=== PATIENT | male | born 1930 | race Caucasian/White ===

== ENCOUNTER 2016-09-13 01:07 | Observation (INO) | payer MEDICARE, OTHER ==
[2016-09-13] MEDS ORDERED: ALBUTEROL SULFATE/IPRATROPIUM 3 ML NEBU IH ONE ×2 (01:27→01:37)
--- NOTE | 2016-09-13 01:30 | ERNOTE ---
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 - Immun/Allergies/Home Medications Immunizations: IMMUNIZATION HX Immunizations Up to Date Yes History of Influenza Vaccine No Hx Pneumococcal Vaccination No Allergies/Adverse Reactions: Allergies latex Allergy (Mild, Verified 09/13/16 01:39) SWELLING carbamazepine [From Tegretol] Adverse Reaction (Mild, Verified 09/13/16 01:39) RASH carbidopa [From Sinemet] Adverse Reaction (Mild, Verified 09/13/16 01:39) RASH levodopa [From Sinemet] Adverse Reaction (Mild, Verified 09/13/16 01:39) RASH Home Medications: HOME MEDICATIONS Dabigatran Etexilate Mesylate [Pradaxa] 75 mg PO DAILY 09/13/16 [Last Taken Unknown] Diphenhydramine HCl [Benadryl Allergy] 25 mg PO QID 09/13/16 [Last Taken Unknown ] Fenofibrate [Lofibra] 54 mg PO DAILY 09/13/16 [Last Taken Unknown] Furosemide 20 mg PO DAILY 09/13/16 [Last Taken Unknown] Insul NPH Hu Rec/Ins Rg Hu Rec [Novolin 70/30 100U/ml] 15 units SQ BID 09/13/16 [Last Taken Unknown] Insulin Aspart [Novolog] 15 units SC DAILY 09/13/16 [Last Taken Unknown] L.acidoph,Paracasei, B.lactis [Probiotic] 1 tab PO BID 09/13/16 [Last Taken Unknown] Levothyroxine Sodium [Levoxyl] 25 mcg PO DAILY 09/13/16 [Last Taken Unknown] Montelukast Sodium [Singulair] 10 mg PO DAILY 09/13/16 [Last Taken Unknown] Simvastatin 20 mg PO HS 09/13/16 [Last Taken Unknown] Tamsulosin HCl 0.4 mg PO DAILY 09/13/16 [Last Taken Unknown] Temazepam 30 mg PO HS 09/13/16 [Last Taken Unknown] - History of Present Illness Narrative: SAYS HE HAS HAD SEVERE COUGHING AND SOB FOR THE PAST 2 NIGHTS AND TONIGHT HE DID NOT IMPROVE WITH HIS BREATHING TREATMENTS SO SHE CALLED EMS WHO STARTED HIM ON BIPAP. HE HAS HX OF TUSHAR BUT HAS NOT USED C-PAP FOR A "WHILE", CAN'T QUITE EXPLAIN ( it sounds like it may have been lost in transferring from one clinic to another as it was started by someone in [place]). HE HAS HX OF CHF AND PHX OF [place] 30 YRS AGO. HE HAS PARKINSONS AND IS BED RIDDEN AT HOME AND IS VERY OBESE AND NON-AMBULATORY. WHEN I ASKED IF THEY HAVE HOME HELP SHE DID NOT REPLY. ACCORDING TO HER HE HAS BEEN A FULL CODE BUT SHE WANTS HIM TO BE A DNR( she later tells me she will talk this over with her pcp) . PT, WHO DOESN'T SAY MUCH, THOUGH SEEMS ALERT, DENIES CURRENT PAIN OR RESPIRATORY DISTRESS. SAYS HE WAS LAST SEEN BY PCP 4-5 MONTHS AGO. - Patient's Past Medical History Patient History - Medical: Diabetes Type 2 Insulin Dependent, Hypothyroidism, Renal Disease, UTI'S, Other Patient History - Cardiac/Respiratory: Asthma, Coronary Heart Disease, Deep Vein Thrombosis, Myocardial Infarction, Pneumonia, Sleep Apnea Patient History - Cancer: Myeloma Patient History - Surgical Procedures: Back Surgery, Cataracts, Cardiac stent, Total Knee Replacement, Other - circumcision Patient History - Other: None - Family History Father Family History - Medical: Family History - Cardiac/Respiratory: Myocardial Infarction Mother Family History - Cardiac/Respiratory: No pertinent hx Brother Family History - Medical: Other Family History - Cardiac/Respiratory: No pertinent hx - Social History Living Situations: other - patient is bedbound, chrystal lift only, taken care of by with bath aid, refuses to put patient in retirement Abuse History: No History of abuse Psych History: Hx of Anxiety Does anyone smoke in the home?: No Alcohol Use: none Drug Use: none - Immunizations Immunizations Up to Date: Yes Hx Pneumococcal Vaccination: No History of Influenza Vaccine: No Physical Exam - Physical Exam General Appearance: Present: sleeping/easy to arouse - PT IS AN OBESE ELDERLY , INVALIDED, NON-AMBULATORY ELIECER BIPAP , 10/5 AND FIO2 OF 50%, WITH GOOD VS AND NO EVIDENCE OF ANY DISTRESS, REPIRATORY OR OTHERWISE. HE IS ALERT AND COOPERATIVE BUT SAYS IT IS HARD FOR HIM TO SPEAK CLEARLY BECAUSE OF HIS CHRONIC ILLNESS AND DEFERS TO HIS . HE IS CHRONICALLY WEAKEND FROM HIS PARKINSONS AND UNABLE TO HELP HIMSELF TO SITTING. Ears, Nose, Throat: Present: normal ENT inspection, other - WEARING CPAP MASK AND TOLERATING IT WELL. Respiratory: Present: no respiratory distress, normal breath sounds, no accessory muscle use, chest nontender, lungs clear - ANTERIORLY AND LATERALLY. Cardiovascular/Chest: Present: no murmur, normal peripheral pulses, irregularly irregular Peripheral Pulses: N=norm/S=strong/W=weak/B=bound/A=absent: Dorsalis-pedis (R): Normal, Dorsalis-pedis (L): Normal Gastrointestinal/Abdominal: Present: normal bowel sounds, nontender - VERY OBESE AND SOFT. Extremity Exam: Present: other - PT WITH BILATERAL FOOT AND ANKLE PADDINGS AND MILD CHRONIC NON PITTING EDEMA. Neurological Exam: Present: alert, oriented, normal mood/affect Skin Exam: Present: normal color, warm/dry ED Progress - Results and Orders Patient's Lab Results:: I have reviewed the patient's lab results. Results and Orders: cbc = wnl. cmp = bun/creat = 48/2.28 ( IN KEEPING WITH OLDER VALUES FROM 01/2016 ), bnp = 1706, and tsh = 4.574. d-dimer & troponin & lactate are all normal. ABG ON 50% FIO2 WITH BIPAP OF 10/50 SHOW SL ELEVATED CO2 AND O2 OF 110 WITH NORMAL PH. ( I ORDERED CPAP AT 4 AND HE WAS DECREASED TO FIO2 = 40 % ) - Vital Signs Patient's Vital Signs:: I have reviewed the patient's vital signs. - EKG EKG: atrial fibrillation EKG read: Interp. by me - no sig. change since 09/2015 except heart now is at 100 and he was 126/min then. - X-Ray X-Ray #1 X-Ray: chest - portable chest = unremarkable. Interpretation: Interp. by me - NO ACUTE CHANGE. - Progress/Reassessment Progress:: Unchanged - pt has had no distress since being here and on bi pap. finally related to me that she ca not take care of him 24 hours a day any more and thinks he needs to be admitted. She states she has had no home health nurse or visiting nurse and has had to do all his care by herself. She seems somewhat fatigued and besides her self with how she can manage anymore. Plan - Plan Plan: IS VERY TIRED TONIGHT AND HAPPY HE WILL BE ADMITTED. I D/W HOSPITALIST ( [facility]) WHO AGREED TO HAVE HIM ADMITTED OBS PT. AND WILL ARRANGE SOCIAL SERVICE CONSULT. Departure Clinical Impression: Dyspnea, unspecified Qualifiers: Dyspnea type: unspecified Qualified Code(s): R06.00 - Dyspnea, unspecified - Departure Disposition: [facility] Condition: Fair
--- OUTSIDE RECORDS SUMMARY | 2016-09-13 01:37 | XMS REPORT | Continuity of Care Document ---
:1930 Author Organization [facility] ([facility]) Address [address] [place] [address] Phone [phone] Care Team Providers Name Role Phone Axel Freire Primary Care Provider [phone] Source Comments This disclosure is being made pursuant to the Care Everywhere program, applicable federal and state laws, and may not contain all informaitonavailable regarding this patient.[facility] ([facility]) Active Allergies and Adverse Reactions Allergen Noted Date Severity Reactions Comments Carbamazepine 05/30/2015 High Rash DRESS Current Medications Prescription Sig. Disp. Refills Start End Date Status Date SUPPLY FREESTYLE by In Vitro route 4 times 1 Each 0 Active LITE meter daily. Patient checks 3 blood sugars QID. Dx: Indications: TYPE 2 DIABETES MELLITUS SUPPLY lancets take as directed daily. 300 Each 3 Active Patient checks blood 3 sugars QID. Dx: Indications: TYPE 2 DIABETES MELLITUS simvastatin 20 mg Take 1 Tab by mouth every 30 Tab 1 Active tablet evening. Indications: 3 HYPERCHOLESTEROLEMIA lisinopril 2.5 mg Take 1 Tab by mouth 30 Tab 1 Active tablet daily. Indications: 3 HYPERTENSION SUPPLY FREESTYLE 4 times daily. Patient 300 Strip 3 Active LITE test strips checks blood sugars 3 QID.Dx: Indications: TYPE 2 DIABETES MELLITUS tamsulosin 0.4 mg Take 0.4 mg by mouth Active ER capsule daily. dorzolamide 2 % instill 1 Drop onto both 10 mL 11 Active ophthalmic eyes 3 times daily. 4 solution Indications: OPEN ANGLE GLAUCOMA acetaminophen 325 Take 650 mg by mouth Active mg tablet every 6 hours as needed for Pain bimatoprost Instill 1 Drop onto the Active (LUMIGAN) 0.01 % left eye every evening ophthalmic solution furosemide 20 mg Take 20 mg by mouth daily Active tablet dabigatran Take 75 mg by mouth daily Active (praDAXA) 75 mg capsule fenofibrate 54 mg Take 54 mg by mouth daily Active tablet lactobacillus Take 1 capsule by mouth 4 Active rhamnosus (gg) times daily (CULTURELLE) capsule montelukast 10 mg Take 10 mg by mouth every Active tablet evening temazepam 30 mg Take 30 mg by mouth at Active capsule bedtime carbidopa-levodopa Take 1 tablet by mouth 3 90 tablet Active 25-100 mg per times daily 6 tablet insulin Inject 20 Units 10 mL Active nph-regular subcutaneously every 6 (HumuLIN 70/30) evening with dinner 100 unit/mL injection vial insulin Inject 30 Units 10 mL Active nph-regular subcutaneously every 6 (HumuLIN 70/30) morning before breakfast 100 unit/mL injection vial predniSONE 50 mg Take 1 tablet (50 mg 30 tablet 0 Active tablet total) by mouth daily 6 triamcinolone 0.1 Apply topically 2 times 15 g Active % ointment daily Apply a thin layer 6 to affected area. lidocaine urojet Insert 10 mL urethrally 6 mL Active 2% once as needed 6 insulin regular Inject 2-10 Units 10 mL Active (HumuLIN R) 100 subcutaneously 3 times 6 unit/mL injection daily before meals. vial lidocaine urojet Insert 10 mL urethrally 11 mL Active 2% once as needed. 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 TUSHAR on CPAP 03/02/2013 Dyspnea on exertion 03/02/2013 Diabetes mellitus type 2, controlled 01/11/2008 Hypertension 01/11/2008 Hyperlipidemia 01/11/2008 Immunizations Name Dates Previously Given Next Due Influenza, unspecified 02/26/2015 Pneumococcal Polysaccharide, PPSV23 (Pneumovax 23) 05/30/2015 Pneumococcal, unspecified 05/29/2012 Social History Tobacco Use Types Packs/Day Years Used Date Former Smoker 1 35 Smokeless Tobacco: Never Used Comments:quit smoking after [place] in 1982 Alcohol Use Drinks/Week oz/Week Comments No Last Filed Vital Signs Vital Sign Reading Time Taken Blood Pressure 136/65 05/30/2015 3:00 PM 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 Pulse 61 05/30/2015 3:00 PM 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 Temperature 36.7 C (98.1 F) 05/30/2015 3:00 PM 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 Respiratory Rate 16 05/30/2015 3:00 PM 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 Height 1.702 m (5' 7") 05/27/2015 8:00 PM 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 Weight 98.521 kg (217 lb 3.2 oz) 05/27/2015 8:00 PM 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 Body Mass Index 34.01 05/27/2015 8:00 PM 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 Oxygen Saturation 96% 05/30/2015 3:00 PM 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 Plan of Care Health Maintenance Due Date Last Done Comments Hepatitis B Vaccine (1 of 3 - Primary 1930 Series) Tdap Vaccine 1943 DIABETIC: Cholesterol 1950 Diabetic: Hdl 1950 Diabetic: Ldl 1950 DIABETIC: Microalbumin 1950 DIABETIC: Triglycerides 1950 Td Vaccine 1950 Colonoscopy 1982 Zoster Vaccine 1992 DIABETIC: Foot Exam 03/02/2013 DIABETIC: Retinal Eye Exam 06/02/2014 06/02/2013, 06/02/2013 DIABETIC: Hemoglobin A1C 11/25/2015 05/27/2015 Influenza Vaccine: Seasonal (#1) 12/17/2015 02/26/2015 Pneumococcal Vaccine (2 of 2 - PCV13) 05/30/2016 05/30/2015 Results from Last 3 Months Not on file
--- OUTSIDE RECORDS SUMMARY | 2016-09-13 01:37 | XMS REPORT | Continuity of Care Document ---
:1930 Author Organization [facility] [place] [address] Care Team Providers Name Role Phone Cyndee Hernandez Primary Care Provider [phone] Source Comments This disclosure is being made pursuant to the [employer] program and maynot contain all information available regarding this patient.[facility] Active Allergies and Adverse Reactions No Known Allergies Current Medications Be aware that medications may not be up to date as of this document. Alwaysverify current medications with the patient. Prescription Sig. Disp. Refills Start Date End Date Status insulin NPH-insulin Inject 50 Units Active regular (HUMULIN into the skin 2 70/30) (70-30) 100 (two) times daily UNIT/ML injection before meals. insulin lispro Inject 5 Units Active (HUMALOG) 100 UNIT/ML into the skin 3 injection (three) times daily before meals. furosemide (LASIX) 40 Take 40 mg by Active MG tablet mouth daily. 2 tabs daily metoprolol tartrate Take 25 mg by Active (LOPRESSOR) 25 MG mouth 2 (two) tablet times daily. simvastatin (ZOCOR) 10 Take 10 mg by Active MG tablet mouth nightly. cephALEXin (KEFLEX) Take 1 capsule by 20 capsule 0 03/12/2012 Active 500 MG capsule mouth 4 (four) times daily. Active Problems Not on file Immunizations Name Dates Previously Given Next Due Influenza Split 05/21/2009,05/14/2009,03/16/2008,02/17 Influenza, Inactivated, Trivalent, 3 02/02/2012 years and older, single dose syringe Pneumococcal Polysaccharide-23 06/07/2007 Td, absorbed 03/12/2012 Social History Tobacco Use Types Packs/Day Years Used Date Former Smoker Alcohol Use Drinks/Week oz/Week Comments No Last Filed Vital Signs Vital Sign Reading Time Taken Blood Pressure 122/68 11/09/2012 1:53 PM CDT Pulse 70 11/09/2012 1:53 PM CDT Temperature 36.8 C (98.2 F) 11/09/2012 1:53 PM CDT Respiratory Rate 18 11/09/2012 1:53 PM CDT Height 1.753 m (5' 9") 07/19/2012 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
[2016-09-13 01:53] LABS: Hematocrit 50.6 % (42.0-52.0); Hemoglobin 16.3 gm/dL (13.5-18.0); Mean Cell Volume 102.2 fl (78-100); Mean Corpuscular Hemoglobin 32.9 pg (27-31); Mean Corpuscular Hgb Conc 32.2 g/dl (32-36); Mean Platelet Volume 10.4 fl (6.0-9.5); Neutrophil # 5.8 K/mm3 (1.3-6.0); Neutrophil % 66.8 % (42-75.0); Platelet Count 264 K/mm3 (150-450); Red Blood Count 4.95 M/mm3 (4.7-6.0); Red Cell Distribution Width 13.3 % (11.5-14.0); White Blood Count 8.7 K/mm3 (4.0-10.5)
[2016-09-13 02:16] LABS: ALT 13 U/L (19-67); AST 12 U/L (0-48); Albumin * 3.3 gm/dl (3.4-5.0); Alkaline Phosphatase * 58 U/L (50-170); Anion Gap 5.4 mmol/L (6.8-13.8); BNP * 1706 pg/mL (5-650); BUN/Creatinine Ratio 21.1 (9.0-21.6); Bilirubin, Total 0.5 mg/dL (0.0-1.1); Blood Urea Nitrogen 48 mg/dL (6-23); Ca. Corrected For Albumin 9.3 mg/dL (8.4-10.2); Calcium * 9.1 mg/dL (7.9-10.9); Carbon Dioxide 35.7 mmol/L (24-32.6); Chloride 103 mmol/L (97-106); Glucose * 143 mg/dL (70-110); Potassium 4.1 mmol/L (3.4-4.6); Sodium 140 mmol/L (132-142); TSH * 4.574 uIU/mL (0.358-3.74); Total Protein 7.2 gm/dL (6.2-8.2)
[2016-09-13 02:17] LABS: Troponin I Less than 0.017 ng/ml (0.00-0.10)
--- OUTSIDE RECORDS SUMMARY | 2016-09-13 02:56 | XMS REPORT | Continuity of Care Document ---
:1930 Author Organization [facility] ([facility]) Address [address] [place] [address] Phone [phone] Care Team Providers Name Role Phone Axel Freire Primary Care Provider [phone] Source Comments This disclosure is being made pursuant to the Care Everywhere program, applicable federal and state laws, and may not contain all informaitonavailable regarding this patient.[facility] ([facility]) Active Allergies and Adverse Reactions Allergen [...] -3 (w/ p.h.) 08/15/2013 20/40 cc Avastin [id number] 20/20 -1 cc icd10 POAG (primary open-angle [...] Smokeless Tobacco: Never Used Comments:quit smoking after [place] in 1982 Alcohol Use Drinks/Week oz/Week Comments No Last Filed Vital Signs Vital Sign Reading Time Taken Blood Pressure 136/65 05/30/2015 3:00 PM 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
--- OUTSIDE RECORDS SUMMARY | 2016-09-13 02:56 | XMS REPORT | Continuity of Care Document ---
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
--- NOTE | 2016-09-13 05:27 | HP ---
Chief Complaint - Chief Complaint Date of Service: 09/13/16 Time of Service: 05:28 Chief Complaint: dyspnea History of Present Illness: 86 years old male adm to the hospital with reports of shortness of breath and a non productive cough. pt stated overnight he had episode of cough with shortness of breath. He was given his nebulizer treatment without relief so his called EMS. Enroute he was placed on bipap and given additional treatment. In ER he was given additional dose duoneb and s/s resolved. Per ER requesting placement for pt because she is no longer able to care for him at home. pt denies chest pain, wheezing, fever, chills or palpitation. pt is a poor historian due to medical condition, additional information obtained from ER and previous records. PMH significant for CHF, COPD, Parkinson, diabetes, hypertension, hypothyroidism and a-fib ( on Pradaxa), [place], recurrent UTI, CKD, c- dif colitis,sleep apnea, pneumonia and DVT. In ER labs unremarkable, BUn/ Cre at baseline and will continue to monitor. CXR unchange from last visit to [facility] ER. - Patient's Past Medical History Patient History - Medical: Diabetes Type 2 Insulin Dependent, Hypothyroidism, Renal Disease, UTI'S - Recurrent , Other - BPH, Parkinson, c-diff colitis, bed bound, obesity Patient History - Cardiac/Respiratory: Asthma, Coronary Heart Disease, CHF, Deep Vein Thrombosis, Myocardial Infarction, Pneumonia, Sleep Apnea Patient History - Cancer: Myeloma Patient History - Surgical Procedures: Back Surgery, Cataracts, Cardiac stent, Total Knee Replacement, Other Patient History - Other: None - Family History Father Family History - Medical: Family History - Cardiac/Respiratory: Myocardial Infarction Mother Family History - Cardiac/Respiratory: No pertinent hx Brother Family History - Medical: Other Family History - Cardiac/Respiratory: No pertinent hx - Social History Living Situations: spouse Abuse History: No History of abuse Psych History: Hx of Anxiety Does anyone smoke in the home?: No Smoking Status: Former smoker Have you smoked in the past 12 months: No Do you dip or chew tobacco: No Patient requests Smoking Cessation Consult: No Initiate information on Smoking Cessation: No Alcohol Use: none Drug Use: none - Immunizations Immunizations Up to Date: Yes Hx Pneumococcal Vaccination: No History of Influenza Vaccine: No Review Of Systems (GEN) - Review of Systems Generalized/Overall Review: Present: Weakness EENTM: Present: No Symptoms Reported Respiratory: Present: Cough, Shortness of Breath Cardiac: Present: No Symptoms Reported Abdominal: Present: No Symptoms Reported Genitourinary: Present: Incontinent Musculoskeletal: Present: No Symptoms Reported Neurological: Present: No Symptoms Reported Skin: Present: No Symptoms Reported Endocrine: Present: No Symptoms Reported Immunizations: IMMUNIZATION HX Immunizations Up to Date Yes History of Influenza Vaccine No Hx Pneumococcal Vaccination No Allergies/Adverse Reactions: Allergies Allergy/AdvReac Type Severity Reaction Status Date / Time latex Allergy Mild SWELLING Verified 09/13/16 01:39 carbamazepine [From Tegretol] AdvReac Mild RASH Verified 09/13/16 01:39 carbidopa [From Sinemet] AdvReac Mild RASH Verified 09/13/16 01:39 levodopa [From Sinemet] AdvReac Mild RASH Verified 09/13/16 01:39 Home Medications: HOME MEDICATIONS Acetaminophen [Tylenol] 650 mg PO QID PRN 09/13/16 [Last Taken Unknown] Bimatoprost [Lumigan 0.01% Opth Solution] 1 drop OP DAILY 09/13/16 [Last Taken Unknown] Dabigatran Etexilate Mesylate [Pradaxa] 75 mg PO DAILY 09/13/16 [Last Taken Unknown] Diphenhydramine HCl [Benadryl Allergy] 25 mg PO QID 09/13/16 [Last Taken Unknown ] Furosemide 20 mg PO DAILY 09/13/16 [Last Taken Unknown] Insul NPH Hu Rec/Ins Rg Hu Rec [Novolin 70/30 100U/ml] 20 units SQ HS 09/13/16 [ Last Taken Unknown] Insulin NPH Human Recom [Novolin N] 15 unit SQ AC 09/13/16 [Last Taken Unknown] Ipratropium/Albuterol Sulfate [Iprat-Albut 0.5-3(2.5) mg/3 ml] 3 ml IH QID 09/13 [Last Taken Unknown] L.acidoph,Paracasei, B.lactis [Probiotic] 1 tab PO BID 09/13/16 [Last Taken Unknown] Levothyroxine Sodium [Levoxyl] 25 mcg PO DAILY 09/13/16 [Last Taken Unknown] Montelukast Sodium [Singulair] 10 mg PO DAILY 09/13/16 [Last Taken Unknown] Simvastatin 20 mg PO HS 09/13/16 [Last Taken Unknown] Tamsulosin HCl 0.4 mg PO HS 09/13/16 [Last Taken Unknown] Temazepam 30 mg PO HS 09/13/16 [Last Taken Unknown] Temazepam [Restoril] 30 mg PO HS 09/13/16 [Last Taken Unknown] Exam - Exam Vital Signs: Vital Signs - Last Taken Temp 36.4 C L 09/13/16 03:38 Pulse 86 09/13/16 03:38 Resp 36 H 09/13/16 03:38 BP 137/75 09/13/16 03:38 Pulse Ox 100 09/13/16 03:38 Constitutional: Present: Alert, Cooperative, Well developed, No distress, Morbidly obese ENT Exam: Present: hearing grossly normal Eye Exam: bilateral eye: PERRL Neck: Present: full range of motion Back Exam: Present: normal inspection Breasts: Present: Exam deferred Respiratory: Present: chest non-tender, normal breath sounds, no respiratory distress, no accessory muscle use, decreased breath sounds Cardiovascular/Chest: Present: normal peripheral pulses, no chest tenderness, no edema, irregularly irregular Peripheral Pulses: dorsalis-pedis (R): 2+, dorsalis-pedis (L): 2+ Abdomen: Present: Normal bowel sounds, soft, nontender, nondistended, no rebound tenderness /Rectal: Present: Exam deferred Extremity: Present: normal range of motion, non-tender, normal inspection, no pedal edema, no calf tenderness Skin Exam: Present: normal color, warm/dry Lymphatic: Present: no adenopathy Neurologic: Present: alert, depressed affect, other - tremors Appearance: Present: impaired recent memory, impaired remote memory Eye contact: Present: cooperative Thoughts: Present: no apparent hallucination Diagnostic Studies: Laboratory Results WBC 8.7 K/mm3 (4.0-10.5) 09/13/16 01:40 RBC 4.95 M/mm3 (4.7-6.0) 09/13/16 01:40 Hgb 16.3 gm/dL (13.5-18.0) 09/13/16 01:40 Hct 50.6 % (42.0-52.0) 09/13/16 01:40 MCV 102.2 fl (78-100) H 09/13/16 01:40 MCH 32.9 pg (27-31) H 09/13/16 01:40 MCHC 32.2 g/dl (32-36) 09/13/16 01:40 RDW 13.3 % (11.5-14.0) 09/13/16 01:40 Plt Count 264 K/mm3 (150-450) 09/13/16 01:40 MPV 10.4 fl (6.0-9.5) H 09/13/16 01:40 Immature Gran % (Auto) 0.30 % (0.001-0.429) 09/13/16 01:40 Immature Gran # (Auto) 0.03 K/mm3 (0.000-0.0310) 09/13/16 01:40 Neutrophils % 66.8 % (42-75.0) 09/13/16 01:40 Lymphocytes % 16.1 % (20-51) L 09/13/16 01:40 Monocytes % 11.8 % (0.0-9) H 09/13/16 01:40 Eosinophils % 4.5 % (0.0-3.0) H 09/13/16 01:40 Basophils % 0.5 % (0.0-1.0) 09/13/16 01:40 Nucleated RBC % 0.0 k/mm3 (0-1) 09/13/16 01:40 Neutrophils # 5.8 K/mm3 (1.3-6.0) 09/13/16 01:40 Lymphocytes # 1.4 k/mm3 (1.5-3.5) L 09/13/16 01:40 Monocytes # 1.0 k/mm3 (0.0-1.0) 09/13/16 01:40 Eosinophils # 0.4 k/mm3 (0.0-0.7) 09/13/16 01:40 Absolute Basophils 0.0 k/mm3 (0.0-0.1) 09/13/16 01:40 D-Dimer 0.19 mg/L (0.19-0.49) 09/13/16 01:27 pCO2 49.4 mmHg (35.0-48.0) H 09/13/16 01:27 pO2 110.7 mmHg (83.0-108.0) H 09/13/16 01:27 HCO3 29.6 mmol/L (21.0-28.0) H 09/13/16 01:27 Total CO2 31.1 mmol/L (19.0-24.0) H 09/13/16 01:27 Base Excess 3.6 mmol/L (-2.0-3.0) H 09/13/16 01:27 ABG pH 7.40 (7.35-7.45) 09/13/16 01:27 ABG O2 Sat (Measured) 98.0 % (94.0-98.0) 09/13/16 01:27 Sodium 140 mmol/L (132-142) 09/13/16 01:40 Plasma Sodium 141 mmol/L (130-142) 09/13/16 01:40 Potassium 4.1 mmol/L (3.4-4.6) 09/13/16 01:40 Chloride 103 mmol/L (97-106) 09/13/16 01:40 Carbon Dioxide 35.7 mmol/L (24-32.6) H 09/13/16 01:40 Anion Gap 5.4 mmol/L (6.8-13.8) L 09/13/16 01:40 BUN 48 mg/dL (6-23) H 09/13/16 01:40 Creatinine 2.28 mg/dL (0.4-1.4) H 09/13/16 01:40 Est GFR (Non-Af Amer) 29 mL/min (60-130) L 09/13/16 01:40 BUN/Creatinine Ratio 21.1 (9.0-21.6) 09/13/16 01:40 Random Glucose 143 mg/dL (70-110) H 09/13/16 01:40 Lactic Acid, Venous 0.8 mmol/L (0.4-1.9) 09/13/16 01:40 Calcium 9.1 mg/dL (7.9-10.9) 09/13/16 01:40 Calcium Adj for Albumin 9.3 mg/dL (8.4-10.2) 09/13/16 01:40 Total Bilirubin 0.5 mg/dL (0.0-1.1) 09/13/16 01:40 AST 12 U/L (0-48) 09/13/16 01:40 ALT 13 U/L (19-67) L 09/13/16 01:40 Alkaline Phosphatase 58 U/L (50-170) 09/13/16 01:40 Troponin I Less than 0.017 ng/ml (0.00-0.10) 09/13/16 01:40 B-Natriuretic Peptide 1706 pg/mL (5-650) H 09/13/16 01:40 Total Protein 7.2 gm/dL (6.2-8.2) 09/13/16 01:40 Albumin 3.3 gm/dl (3.4-5.0) L 09/13/16 01:40 TSH 4.574 uIU/mL (0.358-3.74) H 09/13/16 01:40 Assessment/Plan - Narrative Narrative: Diabetes Accu-check and continue with home dose of insulin Consistent carb diet Hypothyroidism Repeat TSH, for possible increased in dose of current home medication CHF-stable Euvolemic Continue with home dose of medications BPH- stable Continue with home dose of Flomax straight cath if retention Bladder scan post void. Hypertension- stable continue home medication Parkinson supportive care Family need placement Weakness Pt is bed bound PT eval and treatment Chronic kidney disease Pt is currently at his baseline Monitor BMP Sleep apnea pt lost his Cpap a while back He maybe on cpap during sleep if he agree COPD- No exacerbation Resume home medication Supplemented oxygen for shortness of breath He had duoneb x1 treatment in ER and s/s resolved Dyspnea- resolved pt reported having shortness of breath with cough while at home His gave him treatment without s/s resolving and brought him to the ER While enroute to hospital he was placed on Bipap and neb treatment given He got additional dose in ER and s/s resolved. Code status: DNR VTE ppx: pradaxa therapeutic and SCD Anticipate discharge today with placement to alf vs home Time 30 minutes and previous records reviewed. - Assessment/Plan (1) Dyspnea, unspecified Problem: Resolved Qualifiers: Dyspnea type: unspecified Qualified Code(s): R06.00 - Dyspnea, unspecified (2) Acute renal failure Problem: Chronic (3) Diabetes Problem: Chronic Qualifiers: Diabetes mellitus type: type 2 Diabetes mellitus complication status: with neurologic complications Diabetes mellitus complication detail: with polyneuropathy (4) HTN (hypertension) Problem: Chronic Qualifiers: Hypertension type: essential hypertension (5) Parkinson disease Problem: Chronic (6) Weakness generalized Problem: Chronic
[2016-09-13] MEDS ORDERED: ALBUTEROL SULFATE/IPRATROPIUM 3 ML NEBU IH PRN (05:36)
[2016-09-13] MEDS ORDERED: ACETAMINOPHEN 325 MG TABLET PO PRN (05:46)
[2016-09-13] MEDS: LEVOTHYROXINE SODIUM 25 MCG TABLET PO SCH (07:58)
[2016-09-13] MEDS: [UNRECOGNIZED DRUG - OTHER] SC SCH ×3 (07:58→17:35)
[2016-09-13] MEDS ORDERED: ALBUTEROL SULFATE/IPRATROPIUM 3 ML NEBU IH SCH (09:00)
[2016-09-13] MEDS: DABIGATRAN ETEXILATE MESYLATE 75 MG CAPSULE PO SCH (09:49)
[2016-09-13] MEDS: LACTOBACILLUS ACIDOPHILUS 100 CAP BTL PO SCH ×2 (09:49→20:18)
[2016-09-13] MEDS: BIMATOPROST 25 DROP BTL OP SCH (09:50)
[2016-09-13] MEDS: MONTELUKAST SODIUM 10 MG TABLET PO SCH (09:50)
[2016-09-13] MEDS: diphenhydrAMINE HCL 25 MG CAPSULE PO SCH ×4 (09:50→20:32)
[2016-09-13] MEDS: FUROSEMIDE 20 MG TABLET PO SCH (09:51)
[2016-09-13] MEDS: ALBUTEROL SULFATE/IPRATROPIUM 3 ML NEBU IH SCH ×3 (10:17→18:13)
[2016-09-13] MEDS ORDERED: LIDOCAINE HCL 10 APPL CARTRIDGE TP ONE (13:43)
[2016-09-13] MEDS ORDERED: AZITHROMYCIN 250 MG TABLET PO ONE (13:51)
[2016-09-13 15:22] LABS: Urine Appearance Cloudy; Urine Bilirubin Negative (NEGATIVE); Urine Blood 50 /ul (NEGATIVE); Urine Color Yellow; Urine Ketone Negative (NEGATIVE); Urine Nitrite Positive (NEGATIVE); Urine Protein 100 mg/dL (NEGATIVE); Urine Specific Gravity 1.025 SP.GR. (1.005-1.030); Urine Urobilinogen Normal (NORMAL); Urine pH 6.5 pH (5.0-7.0)
[2016-09-13 15:24] LABS: Urine WBC >50 /hpf (0-5)
[2016-09-13 15:25] LABS: Urine Bacteria 3+
[2016-09-13] MEDS ORDERED: INSUL NPH HU REC/INS RG HU REC 100 UNITS/ML VIAL SC SCH (21:00)
[2016-09-13] MEDS ORDERED: SIMVASTATIN 20 MG TABLET PO SCH (21:00)
[2016-09-13] MEDS ORDERED: TEMAZEPAM 15 MG CAPSULE PO SCH ×2 (21:00)
[2016-09-13] MEDS ORDERED: TAMSULOSIN HCL 0.4 MG CAP.SR.24H PO SCH (21:00)
[2016-09-14] MEDS: ALBUTEROL SULFATE/IPRATROPIUM 3 ML NEBU IH SCH ×2 (05:50→10:13)
[2016-09-14 06:37] LABS: Anion Gap 10.7 mmol/L (6.8-13.8); BUN/Creatinine Ratio 22.4 (9.0-21.6); Calcium * 9.2 mg/dL (7.9-10.9); Carbon Dioxide 28.7 mmol/L (24-32.6); Estimated Creat Clear 27.9; Potassium 4.4 mmol/L (3.4-4.6); TSH * 4.038 uIU/mL (0.358-3.74)
[2016-09-14] MEDS ORDERED: DEXTROSE 50%-WATER 50 ML SYRG IV ONE (07:23)
[2016-09-14] MEDS ORDERED: DEXTROSE 50%-WATER 50 ML SYRG ONE (07:24)
[2016-09-14] MEDS: [UNRECOGNIZED DRUG - OTHER] SC SCH ×2 (07:26→12:03)
[2016-09-14] MEDS: LEVOTHYROXINE SODIUM 25 MCG TABLET PO SCH (07:38)
[2016-09-14] MEDS ORDERED: AZITHROMYCIN 250 MG TABLET PO SCH (09:00)
[2016-09-14] MEDS: LACTOBACILLUS ACIDOPHILUS 100 CAP BTL PO SCH (09:58)
[2016-09-14] MEDS: MONTELUKAST SODIUM 10 MG TABLET PO SCH (09:58)
[2016-09-14] MEDS: DABIGATRAN ETEXILATE MESYLATE 75 MG CAPSULE PO SCH (09:58)
[2016-09-14] MEDS: FUROSEMIDE 20 MG TABLET PO SCH (09:59)
[2016-09-14] MEDS: BIMATOPROST 25 DROP BTL OP SCH (09:59)
[2016-09-14] MEDS: diphenhydrAMINE HCL 25 MG CAPSULE PO SCH ×2 (10:01→13:39)
[2016-09-14 10:46] VITALS: BP 138/96
--- NOTE | 2016-09-14 11:21 | DS ---
(1) Bronchitis Diagnosis(s): Mr. Trevizo is an 86 yo male with acute dyspnea. He lives at home with his the sew on operator. She reported increased sputum production and significant dyspnea. He had no evidence of hypoxia. He was admitted to observation due to the dyspnea. He was witnessed to have apneas during sleep. He was started on azithromycin and rocephin. He was given breathing treatments. His dyspnea improved and his felt comfortable with him going home. Problem: Acute (2) Aspiration into airway Diagnosis(s): Nursing reported coughing after eating/drinking. Discussed swallow study and speech evaluation with patient and . Declined swallow study and evaluation. Problem: Acute (3) Sleep apnea Diagnosis(s): Declined Sleep study. Patient has witnessed sleep apnea. Problem: Acute (4) Dyspnea, unspecified Problem: Resolved Qualifiers: Dyspnea type: unspecified Qualified Code(s): R06.00 - Dyspnea, unspecified Procedures Performed: none Discharge Disposition: Home self care Disposition: Home self-care Condition: Fair Discharge Diet: Consistent carbs Referrals: Justice Rivas DO [Primary Care Provider] - (As needed) Problem Oriented Discharge Instructions to Patient/Family: Aspiration Precautions, Sleep Apnea, [id number] Additional Patient Instructions (free text): Would like [facility] Home Health at discharge, (new). Family is also interested in talking with hospice. Prescriptions (Any new or edited meds): Azithromycin [Zithromax] 250 mg PO DAILY #4 tablet guaiFENesin [Mucinex] 1,200 mg PO BID #60 tablet.sa Complete Home Medications List: Complete Home Medication List: Acetaminophen [Tylenol] 650 mg PO QID PRN 09/13/16 Bimatoprost [Lumigan 0.01% Ophthalmic Solution] 1 drop OP DAILY 09/13/16 Dabigatran Etexilate Mesylate [Pradaxa] 75 mg PO DAILY 09/13/16 Diphenhydramine HCl [Benadryl Allergy] 25 mg PO QID 09/13/16 Fenofibrate [Lofibra] 54 mg PO DAILY 09/13/16 Furosemide 20 mg PO DAILY 09/13/16 Insul NPH Hu Rec/Ins Rg Hu Rec [Novolin 70/30] 20 units SQ HS 09/13/16 Insulin NPH Human Recom [Novolin N] 15 - 20 unit SQ AC 09/13/16 Ipratropium/Albuterol Sulfate [Iprat-Albut 0.5-3(2.5) mg/3 ml] 3 ml IH QID 09/13 L.acidoph,Paracasei, B.lactis [Probiotic] 1 tab PO BID 09/13/16 Levothyroxine Sodium [Levoxyl] 25 mcg PO DAILY 09/13/16 Montelukast Sodium [Singulair] 10 mg PO DAILY 09/13/16 Simvastatin 20 mg PO HS 09/13/16 Tamsulosin HCl 0.4 mg PO HS 09/13/16 Temazepam [Restoril] 30 mg PO HS 09/13/16 Azithromycin [Zithromax] 250 mg PO DAILY #4 tablet 09/14/16 guaiFENesin [Mucinex] 1,200 mg PO BID #60 tablet.sa 09/14/16
== END 2016-09-14 14:00 | disposition home or self-care (01) ==
LOC: ER 01:07 → MS 02:49
PROVIDERS: ADMIT Nurse Practitioner; ATTEND Family Medicine
PROC: 4A033R1 Measurement of Arterial Saturation, Peripheral, Percutaneous Approach (ICD-10-PCS; principal; 2016-09-13)
DX: J20.9 Acute bronchitis, unspecified (principal); J44.0 Chronic obstructive pulmonary disease with (acute) lower respiratory infection; Z87.891 Personal history of nicotine dependence; T18.120A Food in esophagus causing compression of trachea, initial encounter; G47.33 Obstructive sleep apnea (adult) (pediatric); R06.02 Shortness of breath; E11.9 Type 2 diabetes mellitus without complications; E03.9 Hypothyroidism, unspecified; G20 Parkinson's disease; N17.9 Acute kidney failure, unspecified; E11.42 Type 2 diabetes mellitus with diabetic polyneuropathy; Z79.4 Long term (current) use of insulin; I10 Essential (primary) hypertension; N39.0 Urinary tract infection, site not specified; B95.62 Methicillin resistant Staphylococcus aureus infection as the cause of diseases classified elsewhere
CPT/HCPCS: 36415; 36600; 71010; 80048; 80053; 81001; 82803; 83605; 83880; 84443; 84484; 85025; 85379; 87040; 87077; 87081; 87086; 87186; 93005; 94640; 94660; 94760; 96372; 99284; G0378

== ENCOUNTER 2017-05-09 11:47 | Inpatient (IN) | payer OTHER, MEDICARE ==
[2017-05-09] MEDS ORDERED: NAPROXEN 250 MG PO PRN (14:23)
[2017-05-09] MEDS ORDERED: MORPHINE SULFATE 10 MG/0.5 ML SYRINGE PO PRN (14:23)
[2017-05-09] MEDS ORDERED: DIMETHICONE APPL TP PRN (14:23)
[2017-05-09] MEDS ORDERED: ALBUTEROL SULFATE/IPRATROPIUM 3 ML NEBU IH PRN (14:23)
[2017-05-09] MEDS ORDERED: HYDROcodone/ACETAMINOPHEN 1 EACH TABLET PO PRN (14:23)
--- NOTE | 2017-05-09 14:54 | HP ---
Chief Complaint - Chief Complaint Date of Service: 05/09/17 Time of Service: 14:53 Chief Complaint: admission in to respite care. History of Present Illness: Patient is a 86-year-old WM with a history of CAD [GA with stent placement], T2 DM, CKD stage III/IV, TUSHAR on CPAP, OA with LT TKA, chronic pain in hospice was admitted to respite for 5 days as his developed shingles. He has been bedridden for the last 2 years. Has Glucerna 3 times a day checks his blood sugars once daily in the morning. catheterizes him once daily in the morning with lidocaine jelly. 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 BPH. Patient History - Cancer: Myeloma Additional Info: PAST SURGICAL HISTORY: Stent placement in the , bilateral cataract surgery, back surgery LT knee replacement. Patient History - Other: None - Family History Father Family History - Medical: Family History - Cardiac/Respiratory: CHF, Myocardial Infarction Family History - Cancer: No pertinent family hx Mother Family History - Medical: History Unknown Family History - Cardiac/Respiratory: History Unknown Brother Family History - Medical: Other Family History - Cardiac/Respiratory: No pertinent hx - Social History Living Situations: home Abuse History: No History of abuse Psych History: Hx of Anxiety Smoking Status: Former smoker Have you smoked in the past 12 months: No - Immunizations Immunizations Up to Date: Yes Hx Pneumococcal Vaccination: No History of Influenza Vaccine: No Review Of Systems (GEN) - Review of Systems Generalized/Overall Review: Absent: Chills, Fever Respiratory: Absent: Cough, Shortness of Breath Cardiac: Present: Chest Pain, Edema Musculoskeletal: Present: Joint Pain, Back Pain - nonambulatory Neurological: Absent: Anxiety, Depressed Immunizations: IMMUNIZATION HX Immunizations Up to Date Yes History of Influenza Vaccine No Hx Pneumococcal Vaccination No Allergies/Adverse Reactions: Allergies Allergy/AdvReac Type Severity Reaction Status Date / Time latex Allergy Mild SWELLING Verified 05/09/17 14:52 carbamazepine [From Tegretol] AdvReac Mild RASH Verified 05/09/17 14:52 carbidopa [From Sinemet] AdvReac Mild RASH Verified 05/09/17 14:52 levodopa [From Sinemet] AdvReac Mild RASH Verified 05/09/17 14:52 Home Medications: HOME MEDICATIONS Acetaminophen [Tylenol] 650 mg PO QID PRN 09/13/16 [Last Taken Unknown] Furosemide 40 mg PO DAILY 09/13/16 [Last Taken Unknown] Insul NPH Hu Rec/Ins Rg Hu Rec [Novolin 70/30] 15 - 20 units SQ BID 09/13/16 [ Last Taken Unknown] Ipratropium/Albuterol Sulfate [Iprat-Albut 0.5-3(2.5) mg/3 ml] 3 ml IH QID PRN 09/13/16 [Last Taken Unknown] Simvastatin 20 mg PO HS 09/13/16 [Last Taken Unknown] Temazepam [Restoril] 30 mg PO HS 09/13/16 [Last Taken Unknown] Bimatoprost [Lumigan 0.01% Ophthalmic Solution] 1 drop OP DAILY 05/09/17 [Last Taken Unknown] Dabigatran Etexilate Mesylate [Pradaxa] 75 mg PO DAILY 05/09/17 [Last Taken Unknown] Dimethicone [Proshield Plus] 120 gm TP BID PRN 05/09/17 [Last Taken Unknown] Diphenhydramine HCl [Allergy] 25 mg PO QID PRN 05/09/17 [Last Taken Unknown] Docusate Sodium 100 mg PO DAILY PRN 05/09/17 [Last Taken Unknown] HYDROcodone/ACETAMINOPHEN [Hydrocodone-Acetamin 5-325 mg] 1 each PO QID PRN [Last Taken Unknown] Insulin NPH Human Isophane [Humulin N] 15 unit SQ DAILY 05/09/17 [Last Taken Unknown] Morphine Sulfate [Morphine Sulfate Conc. Oral Solution] 5 mg PO Q4H PRN [Last Taken Unknown] Naproxen 250 mg PO BID PRN 05/09/17 [Last Taken Unknown] guaiFENesin [Mucinex] 1,200 mg PO BID PRN 05/09/17 [Last Taken Unknown] Exam - Exam Vital Signs: Vital Signs - Last Taken Temp 37.0 C 05/09/17 13:13 Pulse 110 H 05/09/17 13:13 Resp 16 05/09/17 13:13 BP 130/99 05/09/17 13:13 Pulse Ox 96 05/09/17 13:13 Constitutional: Present: Elderly, Obese - with multiple ecchymosis/skin tears. ENT Exam: Present: hard of hearing, dry mucous membranes Eye Exam: bilateral eye: PERRL, EOMI Neck: Present: trachea midline Respiratory: Present: no accessory muscle use, decreased breath sounds Cardiovascular/Chest: Present: regular rate, rhythm - Distant heart sounds Abdomen: Present: Normal bowel sounds, nondistended, obese Extremity: Present: normal inspection, pedal edema - trace. Assessment/Plan - Narrative Narrative: 1. Respite care [Hospice]: Patient will be admitted into acute for 5 days. Continue all his current meds except for Naprosyn which will exacerbate his CKD. Continue O2 at bedtime and when necessary - Assessment/Plan (1) Parkinson disease Problem: Chronic (2) Chronic pain Problem: Chronic Qualifiers: Chronic pain type: other chronic pain Qualified Code(s): G89.29 - Other chronic pain (3) Diabetes Problem: Chronic Qualifiers: Diabetes mellitus type: type 2 Diabetes mellitus complication status: with neurologic complications Diabetes mellitus complication detail: with polyneuropathy Diabetes mellitus terminal make up operator insulin use: with terminal make up operator use Qualified Code(s): E11.42 - Type 2 diabetes mellitus with diabetic polyneuropathy; Z79.4 - residential (current) use of insulin; Z79.4 - manager terminal ( current) use of insulin; Z79.4 - manager terminal (current) use of insulin; Z79.4 - manager terminal (current) use of insulin (4) CAD (coronary artery disease) Problem: Chronic Qualifiers: Coronary Disease-Associated Artery/Lesion type: [place] artery Associated angina: without angina (5) PAF (paroxysmal atrial fibrillation) Problem: Chronic
[2017-05-09] MEDS ORDERED: ACETAMINOPHEN 325 MG TABLET PO PRN (14:59)
[2017-05-09] MEDS: INSUL NPH HU REC/INS RG HU REC 100 UNITS/ML VIAL SC SCH (16:59)
[2017-05-09] MEDS ORDERED: TEMAZEPAM 15 MG CAPSULE PO PRN (20:00)
[2017-05-09] MEDS ORDERED: DOCUSATE SODIUM 100 MG CAPSULE PO PRN (20:00)
[2017-05-09] MEDS: SIMVASTATIN 20 MG TABLET PO SCH (20:45)
[2017-05-10] MEDS: INSUL NPH HU REC/INS RG HU REC 100 UNITS/ML VIAL SC SCH ×2 (06:40→16:58)
[2017-05-10] MEDS ORDERED: LIDOCAINE HCL 10 APPL CARTRIDGE TP PRN (07:27)
[2017-05-10] MEDS: FUROSEMIDE 40 MG TABLET PO SCH (08:22)
[2017-05-10] MEDS: DABIGATRAN ETEXILATE MESYLATE 75 MG CAPSULE PO SCH (08:26)
[2017-05-10] MEDS: BIMATOPROST 25 DROP BTL OP SCH (08:26)
[2017-05-10] MEDS: SIMVASTATIN 20 MG TABLET PO SCH (20:12)
[2017-05-11] MEDS: INSUL NPH HU REC/INS RG HU REC 100 UNITS/ML VIAL SC SCH ×2 (08:16→17:17)
[2017-05-11] MEDS: BIMATOPROST 25 DROP BTL OP SCH (08:28)
[2017-05-11] MEDS: FUROSEMIDE 40 MG TABLET PO SCH (08:28)
[2017-05-11] MEDS: DABIGATRAN ETEXILATE MESYLATE 75 MG CAPSULE PO SCH (08:28)
[2017-05-11] MEDS: SIMVASTATIN 20 MG TABLET PO SCH (20:31)
[2017-05-12] MEDS: INSUL NPH HU REC/INS RG HU REC 100 UNITS/ML VIAL SC SCH ×2 (06:57→16:45)
[2017-05-12] MEDS: FUROSEMIDE 40 MG TABLET PO SCH (08:46)
[2017-05-12] MEDS: DABIGATRAN ETEXILATE MESYLATE 75 MG CAPSULE PO SCH (08:46)
[2017-05-12] MEDS: BIMATOPROST 25 DROP BTL OP SCH (15:28)
[2017-05-12] MEDS: SIMVASTATIN 20 MG TABLET PO SCH (20:34)
[2017-05-13] MEDS: INSUL NPH HU REC/INS RG HU REC 100 UNITS/ML VIAL SC SCH ×2 (07:37→17:44)
[2017-05-13] MEDS: FUROSEMIDE 40 MG TABLET PO SCH (09:06)
[2017-05-13] MEDS: BIMATOPROST 25 DROP BTL OP SCH (09:06)
[2017-05-13] MEDS: DABIGATRAN ETEXILATE MESYLATE 75 MG CAPSULE PO SCH (09:06)
[2017-05-13] MEDS: SIMVASTATIN 20 MG TABLET PO SCH (20:33)
[2017-05-14] MEDS: INSUL NPH HU REC/INS RG HU REC 100 UNITS/ML VIAL SC SCH ×2 (07:32→17:33)
[2017-05-14] MEDS: FUROSEMIDE 40 MG TABLET PO SCH (09:34)
[2017-05-14] MEDS: BIMATOPROST 25 DROP BTL OP SCH (09:34)
[2017-05-14] MEDS: DABIGATRAN ETEXILATE MESYLATE 75 MG CAPSULE PO SCH (09:34)
[2017-05-14] MEDS: SIMVASTATIN 20 MG TABLET PO SCH (20:27)
[2017-05-15 07:47] VITALS: BP 134/86
[2017-05-15] MEDS: INSUL NPH HU REC/INS RG HU REC 100 UNITS/ML VIAL SC SCH (07:54)
[2017-05-15] MEDS: FUROSEMIDE 40 MG TABLET PO SCH (10:13)
[2017-05-15] MEDS: DABIGATRAN ETEXILATE MESYLATE 75 MG CAPSULE PO SCH (10:13)
[2017-05-15] MEDS: BIMATOPROST 25 DROP BTL OP SCH (10:13)
--- NOTE | 2017-05-15 10:50 | DS ---
Description of Stay: Armand Trevizo, is a 86-year-old WM with a history of CAD [[place] with stent placement], T2 DM, CKD stage III/IV, TUSHAR on CPAP, OA with LT TKA, chronic pain in hospice was admitted on 05/09/2017 to respite for 5 days as his developed shingles. He has been bedridden for the last 2 years. Has Glucerna 3 times a day checks his blood sugars once daily in the morning. catheterizes him once daily in the morning with lidocaine jelly. His stay was unremarkable . His is ready to accept him back to his home today. Procedures Performed: none Discharge Disposition: Home self care Disposition: Home self-care Condition: Stable Discharge Activity: Activity as tolerated Referrals: Axel Garza MD [Primary Care Provider] - Additional Patient Instructions (free text): Continue home hospice care. Complete Home Medications List: Complete Home Medication List: Acetaminophen [Tylenol] 650 mg PO QID PRN 09/13/16 Furosemide 40 mg PO DAILY 09/13/16 Insul NPH Hu Rec/Ins Rg Hu Rec [Novolin 70/30] 15 - 20 units SQ BID 09/13/16 Ipratropium/Albuterol Sulfate [Iprat-Albut 0.5-3(2.5) mg/3 ml] 3 ml IH QID PRN 09/13/16 Simvastatin 20 mg PO HS 09/13/16 Temazepam [Restoril] 30 mg PO HS 09/13/16 Bimatoprost [Lumigan 0.01% Ophthalmic Solution] 1 drop OP DAILY 05/09/17 Dabigatran Etexilate Mesylate [Pradaxa] 75 mg PO DAILY 05/09/17 Dimethicone [Proshield Plus] 120 gm TP BID PRN 05/09/17 Diphenhydramine HCl [Allergy] 25 mg PO QID PRN 05/09/17 Docusate Sodium 100 mg PO DAILY PRN 05/09/17 HYDROcodone/ACETAMINOPHEN [Hydrocodone-Acetamin 5-325 mg] 1 each PO QID PRN Insulin NPH Human Isophane [Humulin N] 15 unit SQ DAILY 05/09/17 Morphine Sulfate [Morphine Sulfate Conc. Oral Solution] 5 mg PO Q4H PRN Naproxen 250 mg PO BID PRN 05/09/17 guaiFENesin [Mucinex] 1,200 mg PO BID PRN 05/09/17
== END 2017-05-15 13:10 | disposition hospice, home (50) | DRG 684 ==
LOC: MS 11:47
PROVIDERS: ADMIT Internal Medicine; ATTEND Internal Medicine
DX: N18.4 Chronic kidney disease, stage 4 (severe) (principal); Z51.5 Encounter for palliative care; Z75.5 Holiday relief care; I25.10 Atherosclerotic heart disease of native coronary artery without angina pectoris; G20 Parkinson's disease; G89.29 Other chronic pain; E11.42 Type 2 diabetes mellitus with diabetic polyneuropathy; I12.9 Hypertensive chronic kidney disease with stage 1 through stage 4 chronic kidney disease, or unspecified chronic kidney disease; E11.22 Type 2 diabetes mellitus with diabetic chronic kidney disease; I48.2 Chronic atrial fibrillation; I25.2 Old myocardial infarction; Z95.5 Presence of coronary angioplasty implant and graft; Z79.4 Long term (current) use of insulin
CPT/HCPCS: 87081